=== PATIENT | female | born 1970 | race Caucasian/White ===

== ENCOUNTER 2020-04-24 11:46 | Emergency (ER) | payer BC, OTHER ==
--- OUTSIDE RECORDS SUMMARY | 2020-04-24 11:48 | XMS REPORT | Continuity of Care Document ---
:1970 Author Organization [facility] t Address [address] [place] [address] Care Team Providers Name Role Phone Chris TOM Attending Clinician Deni RG Attending Clinician Azam OTM Attending Clinician Nurse, General Surgery Attending Clinician Unavailable Radiology Attending Clinician Unavailable Pob, Lab Main Attending Clinician Unavailable Chris TOM Admitting Clinician Problems This patient has no known problems. Allergies, Adverse Reactions, Alerts This patient has no known allergies or adverse reactions. Medications This patient has no known medications. Procedures This patient has no known procedures. Encounters Start End Encounter Admission Attending Care Care Encounter Source Date/Time Date/Time Type Type Clinicians Facility Department ID 2019-10-06 2019-10-06 [facility] Chris [facility] [id number] 06:30:00 10:11:00 Encounter Elen Lewis [id number] [place] [id number] Surgical [id number] [place] 071 2019-10-06 2019-10-06 Anesthesia Atif Cheema [facility] [id number] 07:52:00 08:30:00 Hayes Nascimento 35 0.1.13.10 [place] 4.2.7.2.686 Surgical [id number] [place] 020 2019-10-05 2019-10-05 Nurse Nurse, [facility] [id number] 09:11:18 09:27:35 Visit General [place] [id number] Surgery [place] [id number] Professio [id number] [facility] 377 Building 2019-08-18 2019-08-18 Hospital Radiology [facility] [id number] 12:57:00 23:59:00 Encounter [place] [id number] [place] [id number] [place] [id number] 800 2019-08-18 2019-08-18 Condominium Property Manager Wily, Antione [facility] [id number] 13:01:10 13:16:10 Visit Lab Main [place] [id number] [place] [id number] [id number] [address] Results This patient has no known results.
--- NOTE | 2020-04-24 12:55 | RAD REPORT ---
EXAM DESCRIPTION: CT - Head Brain Wo Cont - 04/24/2020 12:49 pm CLINICAL HISTORY: NUMBNESS Headache, drowsiness COMPARISON: No comparisons TECHNIQUE: All CT scans are performed using dose optimization technique as appropriate and may inclu de automated exposure control or mA/KV adjustment according to patient size. FINDINGS: No intracranial hemorrhage, hydrocephalus or extra-axial fluid collection.No areas of brai n edema or evidence of midline shift. The paranasal sinuses and mastoids are clear. The calvarium is intact. IMPRESSION: No acute intracranial abnormality.
--- NOTE | 2020-04-24 13:06 | RAD REPORT ---
EXAM DESCRIPTION: RAD - Chest Single View - 04/24/2020 12:54 pm CLINICAL HISTORY: left arm heaviness Chest pain. COMPARISON: Chest Single View dated 03/13/2017 FINDINGS: Portable technique limits examination quality. The lungs are grossly clear. The heart is normal in size. No displaced fractures. IMPRESSION: No acute intrathoracic process suspected.
[2020-04-24 13:25] LABS: Absolute Lymphocytes (CBC) 1.6 K/uL (0.7-4.9); Basophils % 0.2 % (0-1.3); Hematocrit 37.3 % (36.0-45.0); Lymphocytes % 25.9 % (15.3-44.8); RBC Red Blood Cell Count 4.04 M/uL (3.86-4.86)
[2020-04-24 13:26] LABS: Protime INR 1.73
[2020-04-24 13:48] LABS: ALT/SGPT 24 U/L (12-78); AST/SGOT 11 U/L (15-37); Albumin 3.7 g/dL (3.4-5.0); Alkaline Phosphatase 86 U/L (45-117); BUN Blood Urea Nitrogen 11 mg/dL (7-18); Bicarbonate 27 mmol/L (21-32); Bilirubin Direct < 0.1 mg/dL (0-0.2); Bilirubin Total 0.3 mg/dL (0.2-1.0); Glucose Level 94 mg/dL (74-106); Magnesium 2.2 mg/dL (1.8-2.4); NT PRO-BNP 62 pg/mL (<125); Potassium 3.6 mmol/L (3.5-5.1); Protein, Total 7.5 g/dL (6.4-8.2); Sodium Level 142 mmol/L (136-145); Troponin (Emerg Dept Use Only) < 0.02 ng/mL (0.0-0.045)
--- NOTE | 2020-04-24 14:21 | EDPHYS ---
Physician Documentation [facility] Name: Madeline Quintanilla Age: 49 yrs Sex: Female : 1970 Arrival Date: 04/24/2020 Time: 11:50 Bed 4 Private MD: ED Physician Dominick Abdalla HPI: 04/24 14:11 This 49 yrs old Female presents to ER via Ambulatory with complaints of L Arm kb Numbness \T\ Tingling. 14:12 The patient presents to the emergency department with paresthesias of the left upper kb extremity, that is mild. Onset: The symptoms/episode began/occurred at 11:30. Context: occurred at home, occurred while the patient was working at computer. Associated signs and symptoms: Pertinent positives: paresthesias, Pertinent negatives: altered mental status, chills, dizziness, fever, headache, nausea, neck stiffness, seizure, syncope, near-syncope, blurred vision, double vision, visual field changes, loss of vision, weakness. Severity of symptoms: At their worst the symptoms were mild in the emergency department the symptoms are unchanged. Patient's baseline: Neuro: alert and fully oriented, Motor: no deficits, Ambulation: walks without assistance, Speech: normal. Current symptoms: paralysis or paresis, of the left forearm, that is mild. The patient has not experienced similar symptoms in the past. The patient has not recently seen a physician. Pt reports she was working at her computer and started feeling tingling and numbness to elbow area and down arm. Took a break and shook out her arm, but the feeling never completely went away. States it waxes and wanes. . Historical: - Allergies: 12:08 No Known Allergies; ll1 - Home Meds: 12:51 Xarelto 20 mg oral tab 1 tab once daily [Active]; zb - PMHx: 12:08 Anxiety; bells palsy; Depression; DVT; PE; Vertigo; ll1 - PSHx: 12:08 D \T\ C; ll1 - Immunization history:: Flu vaccine is up to date. - Social history:: Smoking status: Patient denies any tobacco usage or history of. ROS: 14:08 Constitutional: Negative for fever, chills, and weight loss, Eyes: Negative for injury, kb pain, redness, and discharge, Cardiovascular: Negative for chest pain, palpitations, and edema, Respiratory: Negative for shortness of breath, cough, wheezing, and pleuritic chest pain, Abdomen/GI: Negative for abdominal pain, nausea, vomiting, diarrhea, and constipation, Back: Negative for injury and pain, : Negative for injury, bleeding, discharge, and swelling, MS/Extremity: Negative for injury and deformity, Skin: Negative for injury, rash, and discoloration. 14:08 Neuro: Positive for numbness, tingling, of the left forearm. Exam: 14:08 Constitutional: This is a well developed, well nourished patient who is awake, alert, kb and in no acute distress. Head/Face: Normocephalic, atraumatic. Chest/axilla: Normal chest wall appearance and motion. Nontender with no deformity. No lesions are appreciated. Cardiovascular: Regular rate and rhythm with a normal S1 and S2. No gallops, murmurs, or rubs. Normal PMI, no JVD. No pulse deficits. Respiratory: Lungs have equal breath sounds bilaterally, clear to auscultation and percussion. No rales, rhonchi or wheezes noted. No increased work of breathing, no retractions or nasal flaring. Abdomen/GI: Soft, non-tender, with normal bowel sounds. No distension or tympany. No guarding or rebound. No evidence of tenderness throughout. Skin: Warm, dry with normal turgor. Normal color with no rashes, no lesions, and no evidence of cellulitis. MS/ Extremity: Pulses equal, no cyanosis. Neurovascular intact. Full, normal range of motion. Neuro: Awake and alert, GCS 15, oriented to person, place, time, and situation. Cranial nerves II-XII grossly intact. Motor strength 5/5 in all extremities. Sensory grossly intact. Cerebellar exam normal. Normal gait. 14:08 ECG was reviewed by the Attending Physician. Vital Signs: 12:06 BP 147 / 97; Pulse 81; Resp 17; Temp 98.3; Pulse Ox 99% ; Weight 92.99 kg; Height 5 ft. ll1 8 in. (172.72 cm); Pain 0/10; 12:40 BP 125 / 85; Pulse 70; Resp 18; Pulse Ox 99% on R/A; zb 13:47 BP 129 / 90; Pulse 72; Resp 18; Pulse Ox 99% on R/A; zb 12:06 Body Mass Index 31.17 (92.99 kg, 172.72 cm) ll1 NIH Stroke Scale Scores: 14:20 NIHSS Score: 0 kb MDM: 12:37 Patient medically screened. kb 14:11 Data reviewed: vital signs, nurses notes. Data reviewed: I have discussed the patient's kb presentation/case with the attending Emergency Department Physician;. Data interpreted: Pulse oximetry: on room air is 99 %. Interpretation: normal. Counseling: I had a detailed discussion with the patient and/or guardian regarding: the historical points, exam findings, and any diagnostic results supporting the discharge/admit diagnosis, lab results, radiology results, the need for outpatient follow up, a neurologist, to return to the emergency department if symptoms worsen or persist or if there are any questions or concerns that arise at home. ED course: ERP recommends outpatient follow up . 04/24 12:41 Order name: Basic Metabolic Panel; Complete Time: 13:55 kb 04/24 12:41 Order name: CBC with Diff; Complete Time: 13:27 kb 04/24 12:41 Order name: LFT's; Complete Time: 13:55 kb 04/24 12:41 Order name: Magnesium; Complete Time: 13:55 kb 04/24 12:41 Order name: NT PRO-BNP; Complete Time: 13:55 kb 04/24 12:41 Order name: PT-INR; Complete Time: 13:55 kb 04/24 12:41 Order name: Troponin (emerg Dept Use Only); Complete Time: 13:55 kb 04/24 12:41 Order name: XRAY Chest (1 view); Complete Time: 13:08 kb 04/24 12:41 Order name: EKG; Complete Time: 12:42 kb 04/24 12:41 Order name: Cardiac monitoring; Complete Time: 13:34 kb 04/24 12:41 Order name: EKG - Nurse/Tech; Complete Time: 13:34 kb 04/24 12:41 Order name: IV Saline Lock; Complete Time: 13:18 kb 04/24 12:41 Order name: Labs collected and sent; Complete Time: 13:18 kb 04/24 12:41 Order name: CT Head Brain wo Cont; Complete Time: 12:56 kb 04/24 12:41 Order name: O2 Per Protocol; Complete Time: 13:18 kb 04/24 12:41 Order name: O2 Sat Monitoring; Complete Time: 13:18 kb EC:08 Rate is 63 beats/min. Rhythm is regular. QRS [place] is Normal. UT interval is normal at kb 168 msec. QRS interval is normal at 78 msec. QT interval is normal at 398 msec. Administered Medications: No medications were administered Disposition: 04/25 08:33 Co-signature as Attending Physician, Dominick Abdalla MD I agree with the assessment and kdr plan of care. Disposition: 04/24/20 14:20 Discharged to Home. Impression: Paresthesia of skin. - Condition is Stable. - Discharge Instructions: Paresthesia, Dqel-yf-Flab. - Medication Reconciliation Form, Thank You Letter, Antibiotic Education, Prescription Opioid Use form. - Follow up: Emergency Department; When: As needed; Reason: Worsening of condition. Follow up: Private Physician; When: 2 - 3 days; Reason: Recheck today's complaints, Continuance of care, Re-evaluation by your physician. NIH Stroke Scale - NIH Stroke Score Date: 04/24/2020 Time: 14:20 Total Score = 0 1a. Level of Consciousness (LOC) - 0(Alert) 1b. Level of Consciousness (LOC) (Year \T\ Age) - 0(Both) 1c. LOC Commands (Open \T\ Closes Eyes/Site Leader) - 0(Both) 2. Best Gaze (Lateral Gaze Paresis) - 0(Normal) 3. Visual Field Loss - 0(No visual loss) 4. Facial Palsy - 0(Normal) 5a. Left Arm: Motor (10-second hold) - 0(No drift) 5b. Right Arm: Motor (10-second hold) - 0(No drift) 6a. Left Leg: Motor (5-second hold - always test supine) - 0(No drift) 6b. Right Leg: Motor (5-second hold - always test supine) - 0(No drift) 7. Limb Ataxia (finger/nose \T\ heel/joyner - test with eyes open) - 0(Absent) 8. Sensory Loss (pinprick arms/legs/face) - 0(Normal) 9. Best Language: Aphasia (description/naming/reading) - 0(No aphasia) 10. Dysarthria (speech clarity - read or repeat words) - 0(Normal) 11. Extinction and Inattention (visual/tactile/auditory/spatial/personal) - 0(No abnormality) Initials: kb Signatures: Dispatcher [employer] Renita Casarez, DIANE-Miguel Ángel OFFICE ADMINISTRATION-Dominick Kim MD MD kdr Munoz, Edgar RN RN Karin Livingston RN RN ll1 Maria Elena Sims RN RN zb Corrections: (The following items were deleted from the chart) 04/24 14:34 14:20 04/24/2020 14:20 Discharged to Home. Impression: Paresthesia of skin. em Condition is Stable. Forms are Medication Reconciliation Form, Thank You Letter, Antibiotic Education, Prescription Opioid Use. Follow up: Emergency Department; When: As needed; Reason: Worsening of condition. Follow up: Private Physician; When: 2 - 3 days; Reason: Recheck today's complaints, Continuance of care, Re-evaluation by your physician. kb
--- NOTE | 2020-04-24 14:21 | ER ---
Nurse's Notes [facility] Name: Madeline Quintanilla Age: 49 yrs Sex: Female : 1970 Arrival Date: 04/24/2020 Time: 11:50 Bed 4 Private MD: Diagnosis: Paresthesia of skin Presentation: 04/24 12:06 Chief complaint: Patient states: Noticed left arm tingly/numb today while working on a ll1 computer from home 1.5 hours ago. No CP or SOB. + nausea at times. Coronavirus screen: Client denies travel out of the [place] in the last 14 days. At this time, the client does not indicate any symptoms associated with coronavirus-19. Ebola Screen: Patient denies travel to an Ebola-affected area in the 21 days before illness onset. Initial Sepsis Screen: Does the patient meet any 2 criteria? No. Patient's initial sepsis screen is negative. Does the patient have a suspected source of infection? No. Patient's initial sepsis screen is negative. Risk Assessment: Do you want to hurt yourself or someone else? Patient reports no desire to harm self or others. Onset of symptoms was April 24, 2020. 12:06 Method Of Arrival: Ambulatory ll1 12:06 Acuity: KEISHA 3 ll1 Historical: - Allergies: 12:08 No Known Allergies; ll1 - Home Meds: 12:51 Xarelto 20 mg oral tab 1 tab once daily [Active]; zb - PMHx: 12:08 Anxiety; bells palsy; Depression; DVT; PE; Vertigo; ll1 - PSHx: 12:08 D \T\ C; ll1 - Immunization history:: Flu vaccine is up to date. - Social history:: Smoking status: Patient denies any tobacco usage or history of. Screenin:30 Abuse screen: Denies threats or abuse. Denies injuries from another. Nutritional zb screening: No deficits noted. Tuberculosis screening: No symptoms or risk factors identified. Fall Risk No fall in past 12 months (0 pts). No secondary diagnosis (0 pts). IV access (20 points). Ambulatory Aid- None/Bed Rest/Nurse Assist (0 pts). Gait- Normal/Bed Rest/Wheelchair (0 pts) Mental Status- Oriented to own ability (0 pts). Total Claros Fall Scale indicates No Risk (0-24 pts). Assessment: 12:39 General: Appears in no apparent distress. comfortable, Behavior is calm, cooperative, zb appropriate for age. Pain: Complains of pain in dorsal aspect of left forearm, left wrist, left hand, left elbow, palmar aspect of left forearm and left forearm Quality of pain is described as tingling, numb. Neuro: Level of Consciousness is awake, alert, obeys commands, Oriented to person, place, time, situation, Mechanical Estimator are equal bilaterally Moves all extremities. Gait is Speech is normal, Facial symmetry appears normal, Pupils are PERRLA, Numbness in dorsal aspect of left forearm, left wrist, left hand and palmar aspect of left forearm. Cardiovascular: Capillary refill < 3 seconds in bilateral fingers. Respiratory: Airway is patent Respiratory effort is even, unlabored, Respiratory pattern is regular. GI: Reports nausea. : No signs and/or symptoms were reported regarding the genitourinary system. EENT: No signs and/or symptoms were reported regarding the EENT system. Derm: Skin is intact, is healthy with good turgor, Skin is pink, warm \T\ dry. Musculoskeletal: Circulation, motion, and sensation intact. 13:48 Reassessment: Patient appears in no apparent distress at this time. Patient and/or zb family updated on plan of care and expected duration. Pain level reassessed. Patient is alert, oriented x 3, equal unlabored respirations, skin warm/dry/pink. pt states that she is feeling better still having some numbness but not as bad. Vital Signs: 12:06 BP 147 / 97; Pulse 81; Resp 17; Temp 98.3; Pulse Ox 99% ; Weight 92.99 kg; Height 5 ft. ll1 8 in. (172.72 cm); Pain 0/10; 12:40 BP 125 / 85; Pulse 70; Resp 18; Pulse Ox 99% on R/A; zb 13:47 BP 129 / 90; Pulse 72; Resp 18; Pulse Ox 99% on R/A; zb 12:06 Body Mass Index 31.17 (92.99 kg, 172.72 cm) ll1 NIH Stroke Scale Scores: 14:20 NIHSS Score: 0 kb ED Course: 11:50 Patient arrived in ED. ds1 12:07 Triage completed. ll1 12:08 Arm band placed on. ll1 12:13 Maria Elena Sims, RN is Primary Nurse. zb 12:19 Patient has correct armband on for positive identification. Bed in low position. Call mh5 light in reach. Side rails up X 1. Adult w/ patient. Warm blanket given. monitor tech on. Pulse ox on. NIBP on. 12:37 Renita Whitt FNP-C is PHCP. kb 12:37 Dominick Abdalla MD is Attending Physician. kb 12:[address] via wheelchair. zb 12:49 CT Head Brain wo Cont In Process Unspecified. EDMS 12:54 XRAY Chest (1 view) In Process Unspecified. EDMS 13:15 Inserted saline lock: 20 gauge in left antecubital area, using aseptic technique. Blood hb collected. 14:30 No provider procedures requiring assistance completed. IV discontinued, intact, zb bleeding controlled, No redness/swelling at site. Pressure dressing applied. Administered Medications: No medications were administered Outcome: 14:20 Discharge ordered by . kb 14:30 Discharged to home ambulatory. zb 14:30 Condition: good 14:30 Discharge instructions given to patient, Instructed on discharge instructions, follow up and referral plans. medication usage, Demonstrated understanding of instructions, follow-up care. 14:34 Patient left the ED. em NIH Stroke Scale - NIH Stroke Score Date: 04/24/2020 Time: 14:20 Total Score = 0 1a. Level of Consciousness (LOC) - 0(Alert) 1b. Level of Consciousness (LOC) (Year \T\ Age) - 0(Both) 1c. LOC Commands (Open \T\ Closes Eyes/Industrial Hygiene Engineer) - 0(Both) 2. Best Gaze (Lateral Gaze Paresis) - 0(Normal) 3. Visual Field Loss - 0(No visual loss) 4. Facial Palsy - 0(Normal) 5a. Left Arm: Motor (10-second hold) - 0(No drift) 5b. Right Arm: Motor (10-second hold) - 0(No drift) 6a. Left Leg: Motor (5-second hold - always test supine) - 0(No drift) 6b. Right Leg: Motor (5-second hold - always test supine) - 0(No drift) 7. Limb Ataxia (finger/nose \T\ heel/joyner - test with eyes open) - 0(Absent) 8. Sensory Loss (pinprick arms/legs/face) - 0(Normal) 9. Best Language: Aphasia (description/naming/reading) - 0(No aphasia) 10. Dysarthria (speech clarity - read or repeat words) - 0(Normal) 11. Extinction and Inattention (visual/tactile/auditory/spatial/personal) - 0(No abnormality) Initials: kb Signatures: Dispatcher [employer] Renita Casarez, SCHOOL OFFICE ASSISTANT-C SCHOOL OFFICE ASSISTANT-Ckb Ko Weinstein, RN RN Shama Case ds1 Ruthann Nguyễn RN RN Tawana Galan 5 Karin Hahn RN RN ll1 Maria Elena Sims RN RN zb
[2020-04-24 21:04] VITALS: TEMP 98.3; O2SAT 99
[2020-04-24 21:07] VITALS: BP 129/90
--- NOTE | 2020-04-25 07:18 | EKG ---
Test Date: 2020-04-24 Test Time: 13:26:10 Automatic Nailing Machine Feeder: BUSHRA MEASUREMENT RESULTS: Intervals: Rate: 63 ME: 168 QRSD: 78 QT: 398 QTc: 407 [place]: P: 49 ME: 168 QRS: 44 T: 58 INTERPRETIVE STATEMENTS: Normal sinus rhythm Normal ECG Compared to ECG 03/13/2017 10:43:05 No significant changes Electronically Signed On 04-25-20 07:17:32 [employer] by Stiven Platt
== END 2020-04-24 14:34 | disposition home or self-care (01) ==
LOC: ER 11:46
DX: R20.2 Paresthesia of skin (principal); F41.8 Other specified anxiety disorders; Z86.718 Personal history of other venous thrombosis and embolism; Z79.01 Long term (current) use of anticoagulants
CPT/HCPCS: 36415; 70450; 71045; 80048; 80076; 83735; 83880; 84484; 85025; 85610; 93005; 99285

== ENCOUNTER 2021-08-30 12:51 | Emergency (ER) | payer OTHER ==
--- OUTSIDE RECORDS SUMMARY | 2021-08-30 12:53 | XMS REPORT | Continuity of Care Document ---
:1970 Author Organization [facility] t Address [address] [place] [address] Care Team Providers Name Role Phone PCP, DOES NOT HAVE A Primary Care Physician Unavailable Guy Attending Clinician Unavailable NILO Attending Clinician Unavailable Nilo TOM Attending Clinician Deni RG Attending Clinician Azam TOM Attending Clinician Nurse, General Surgery Attending Clinician Unavailable RADIOLOGY Attending Clinician Unavailable Radiology Attending Clinician Unavailable Pob, Lab Main Attending Clinician Unavailable NILO Admitting Clinician Unavailable Nilo TOM Admitting Clinician MONICAL Admitting Clinician Unavailable Payers Payer Name Policy Type Policy Number Effective Date Expiration Date S [facility] - [id number] 2018 00:00:00 OUT OF STATE Problems This patient has no known problems. Allergies, Adverse Reactions, Alerts Allergy Allergy Status Severity Reaction(s) Onset Inactive Treating Comm ents Source Name Type Date Date Clinician NO KNOWN Drug Active [facility] ALLERGIE Class ity of S [facility] Medications This patient has no known medications. Procedures This patient has no known procedures. Encounters Start End Encounter Admission Attending Care Care Encounter Source Date/Time Date/Time Type Type Clinicians Facility Department ID 2021-08-21 [id number] 08:42:03 [facility]ag[facility] 2021-04-04 Outpatient Brady CORCORAN SDJENNIFER JOHNSON [id number] Univers 19:14:42 SIMA ity of [facility] 2020-09-15 2020-09-15 Outpatient [facility] [id number] Univers 14:50:00 14:50:00 ity of [facility] 2020-08-25 2020-08-25 Outpatient [facility] [id number] Univers 16:00:00 16:00:00 ity of [facility] 2019-10-06 2019-10-06 [facility] [id number] 06:30:00 10:11:00 Encounter Sima Debbie [id number] [place] [id number] Surgical [id number] [place] 07 2019-10-06 2019-10-06 Anesthesia Atif Cheema [facility] 1.2.840.11 [id number] 07:52:00 08:30:00 Hayes Nascimento 35 0.1.13.10 [place] 4.2.7.2.686 Surgical [id number] [place] 020 2019-10-05 2019-10-05 Nurse Nurse, [facility] [id number] 09:11:18 09:27:35 Visit General [place] 350.1.13.10 Surgery [place] 4.2.7.2.686 Professio [id number] [address] 2019-10-05 2019-10-05 Outpatient R [facility] [id number] Univers 09:15:00 09:15:00 [id number] ity of [facility] 2019-10-05 2019-10-05 Outpatient R [facility] [id number] Univers 09:15:00 09:15:00 ity of [facility] 2019-08-18 2019-08-18 Outpatient R RADIOLOGY [facility] [id number] Univers 12:57:44 23:59:00 ity of [facility] 2019-08-18 2019-08-18 [facility] Radiology [facility] [id number] 12:57:00 23:59:00 Encounter [place] 350.1.13.10 [place] [id number] [place] [id number] [facility] 2019-08-18 2019-08-18 Shrimp Trawler Antione Julien [facility] [id number] 13:01:10 13:16:10 Visit Lab Main [place] 350.1.13.10 [place] 4.2.7.2.686 [place] [id number] [address] 2019-08-18 2019-08-18 Outpatient R [facility] [id number] Univers 13:15:00 13:15:00 [id number] ity [facility] Results This patient has no known results.
[2021-08-30] MEDS ORDERED: KETOROLAC 30 MG/ML INJ ONE (14:13)
[2021-08-30] MEDS ORDERED: NA CHLORIDE 0.9% 1,000 ML ONE (14:13)
[2021-08-30] MEDS ORDERED: ONDANSETRON 4 MG/2 ML VIAL ONE (14:13)
[2021-08-30 14:28] LABS: Urine Blood Negative (Negative); Urine Glucose Negative (Negative); Urine Protein Negative (Negative); Urine pH 5.5 (5.0-7.0)
[2021-08-30 14:50] LABS: Urine Bacteria >50 /HPF (<20); Urine RBC <5 /HPF (NONE SEEN)
[2021-08-30 14:51] LABS: Urine Amorphous Sediment 1+ /HPF (NONE SEEN)
[2021-08-30 14:52] LABS: Absolute Lymphocytes (CBC) 1.5 K/uL (0.7-4.9); Hematocrit 35.1 % (36.0-45.0); Lymphocytes % 12.9 % (15.3-44.8); MPV 8.4 fL (7.6-11.3); RBC Red Blood Cell Count 3.76 M/uL (3.86-4.86)
[2021-08-30 14:56] LABS: Albumin 3.3 g/dL (3.4-5.0); Bilirubin Total 0.3 mg/dL (0.2-1.0); Potassium 3.5 mmol/L (3.5-5.1); Protein, Total 7.3 g/dL (6.4-8.2)
--- NOTE | 2021-08-30 15:27 | RAD REPORT ---
EXAM DESCRIPTION: CT - Abdomen Pelvis W Contrast - 08/30/2021 3:10 pm CLINICAL HISTORY: lower abdomen pain COMPARISON: No comparisons TECHNIQUE: Biphasic, helical CT imaging of the abdomen and pelvis was performed following 100 ml non -ionic IV contrast. No oral contrast administered. All CT scans are performed using dose optimization technique as appropriate and may include automated exposure control or mA/KV adjustment according to patient size. FINDINGS: No suspicious findings in the lung bases. The liver, spleen, and pancreas show no suspicious findings. Gallbladder and biliary tree are also wi thout suspicious finding. Symmetric renal function is seen with no hydronephrosis or suspicious renal mass. No pyelonephritis o r acute parenchymal process. No bladder abnormalities. No adrenal abnormalities. No stomach or small bowel abnormality. The appendix is normal. From cecum through splenic flexure of the colon is unremarkable. The distal descending colon shows circumferential wall thickening with sig nificant edema and stranding in the surrounding fat. There are few diverticula in this region. More d istally the sigmoid colon and rectum are unremarkable. Uterus and ovaries show no suspicious findings. No free air or pneumatosis. Small amount of free flu id is present in the dependent portion of the pelvis. There is a 18 millimeter involuting right ovari an cyst present. The fluid may be reactive related to ovarian cyst or may be reactive from the colon process. No hernia, mass or bulky lymphadenopathy. No suspicious bony findings. IMPRESSION: Circumferential wall thickening with surrounding edematous/ inflammatory stranding in th e fat adjacent to the distal descending colon. There are few diverticula in this region. Acute diverticulitis is favored over a non diverticular inf ectious colitis. Colon malignancy is not likely but cannot be entirely excluded. No free air, abscess or surgically emergent complication.
[2021-08-30] MEDS ORDERED: CIPROFLOXACIN HCL 500 MG TAB ONE (15:51)
[2021-08-30] MEDS ORDERED: METRONIDAZOLE 500mg IVPB 500 MG/100 ML BAG IV ONE (15:52)
--- NOTE | 2021-08-30 16:34 | ER ---
Nurse's Notes [facility] Name: Madeline Quintanilla Age: 51 yrs Sex: Female : 1970 Arrival Date: 08/30/2021 Time: 12:51 Bed 16 Private MD: Diagnosis: Diverticulitis of large intestine without perforation or abscess without bleeding Presentation: 08/30 13:36 Chief complaint: Patient states: Lower abdominal cramping, worse in LLQ, radiates to ph back, also reports N/D and chills, denies urinary symptoms, states, " My stomach feels really bloated and hard though.". Coronavirus screen: Vaccine status: Patient reports receiving the 2nd dose of the covid vaccine. Ebola Screen: No symptoms or risks identified at this time. Initial Sepsis Screen: Does the patient meet any 2 criteria? No. Patient's initial sepsis screen is negative. Does the patient have a suspected source of infection? No. Patient's initial sepsis screen is negative. Risk Assessment: Do you want to hurt yourself or someone else? Patient reports no desire to harm self or others. Onset of symptoms was August 30, 2021. 13:36 Method Of Arrival: Ambulatory ph 13:36 Acuity: KEISHA 3 ph Triage Assessment: 13:38 General: Appears in no apparent distress. comfortable, Behavior is calm, cooperative, ph appropriate for age, Reports chills for 0-12 hours, Denies fever. Pain: Complains of pain in right lower quadrant and left lower quadrant. Neuro: Level of Consciousness is awake, alert, obeys commands, Oriented to person, place, time, situation. GI: Reports lower abdominal pain, bloating, diarrhea, nausea. Derm: Skin is intact, Skin is pink, warm \\T\\ dry. 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 - Social history:: Smoking status: Patient denies any tobacco usage or history of. Screenin:45 Abuse screen: Denies threats or abuse. Denies injuries from another. Nutritional bp screening: No deficits noted. Tuberculosis screening: No symptoms or risk factors identified. Fall Risk None identified. Assessment: 13:45 General: SEE TRIAGE NOTE. bp 15:45 Reassessment: No changes from previously documented assessment. Patient and/or family bp updated on plan of care and expected duration. Pain level reassessed. PROVIDER AT B/S. 17:04 Reassessment: PT D/C HOME AMBULATORY, DX WITH DIVERTICULITIS. bp Vital Signs: 13:36 BP 135 / 85; Pulse 86; Resp 16; Temp 97.8(TE); Pulse Ox 100% on R/A; Weight 83.91 kg; ph Height 5 ft. 8 in. (172.72 cm); 15:20 BP 120 / 77; Pulse 67; Resp 16; Pulse Ox 100% ; bp 17:04 BP 120 / 85; Pulse 65; Resp 16; Pulse Ox 100% ; bp 13:36 Body Mass Index 28.13 (83.91 kg, 172.72 cm) ph ED Course: 12:51 Patient arrived in ED. am2 13:19 Tre Fried PA is PHCP. cp 13:19 Sanket See MD is Attending Physician. cp 13:21 Atif Jasmine, KEENA is Primary Nurse. bp 13:37 Triage completed. ph 13:39 Arm band placed on Patient placed in an exam room. ph 13:45 Patient has correct armband on for positive identification. Bed in low position. Call bp light in reach. Side rails up X2. 14:20 Inserted saline lock: 20 gauge in left antecubital area, using aseptic technique. bp 15:12 CT Abd/Pelvis - IV Contrast Only In Process Unspecified. EDMS 16:32 Vitaliy Mckeon MD is Referral Physician. cp 17:04 No provider procedures requiring assistance completed. IV discontinued, intact, bp bleeding controlled, No redness/swelling at site. Pressure dressing applied. Administered Medications: 14:20 Drug: NS 0.9% 1000 ml Route: IV; Rate: 1 bolus; Site: left antecubital; bp 17:06 Follow up: IV Status: Completed infusion; IV Intake: 1000ml bp 14:20 Drug: Ketorolac 15 mg Route: IVP; Site: left antecubital; bp 15:36 Follow up: Response: No adverse reaction bp 14:20 Drug: Zofran (Ondansetron) 4 mg Route: IVP; Site: left antecubital; bp 15:36 Follow up: Response: No adverse reaction bp 15:45 Drug: metroNIDAZOLE 500 mg Volume: 100 ml; Route: IVPB; Infused Over: 30 mins; Site: bp left antecubital; 17:06 Follow up: IV Status: Completed infusion; IV Intake: 100ml bp 15:45 Drug: Cipro (ciprofloxacin) 500 mg Route: PO; bp 17:06 Follow up: Response: No adverse reaction bp Intake: 17:06 IV: 100ml; Total: 100ml. bp 17:06 IV: 1000ml; Total: 1100ml. bp Outcome: 16:33 Discharge ordered by MD. cp 17:04 Discharged to home ambulatory. bp 17:04 Condition: stable 17:04 Discharge instructions given to patient, Instructed on discharge instructions, follow up and referral plans. medication usage, Demonstrated understanding of instructions, follow-up care, medications, Prescriptions given X 4. 17:06 Patient left the ED. bp Signatures: Dispatcher [employer] EDMS Sully Sabillon RN RN ph Tre Fried, FABIENNE PA Oralia Freed 2 Atif Jasmine, RN RN bp Corrections: (The following items were deleted from the chart) 15:57 15:20 Pulse 67bpm; Resp 16bpm; Pulse Ox 100%; bp bp
--- NOTE | 2021-08-30 16:34 | EDPHYS ---
Physician Documentation [facility] Name: Madeline Quintanilla Age: 51 yrs Sex: Female : 1970 Arrival Date: 08/30/2021 Time: 12:51 Bed 16 Private MD: ED Physician Sanket See HPI: 08/30 13:55 This 51 yrs old Female presents to ER via Ambulatory with complaints of Abdominal Pain. cp 13:55 The patient presents with abdominal pain in the lower abdomen. Onset: The cp symptoms/episode began/occurred 1 week(s) ago, and became worse 2 day(s) ago. The symptoms radiate to low back. Associated signs and symptoms: Pertinent negatives: anorexia, chest pain, constipation, diarrhea, dysuria, fever, shortness of breath, vaginal discharge, vomiting. The symptoms are described as crampy. Severity of pain: in the emergency department the pain is unchanged despite home interventions. 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 - Social history:: Smoking status: Patient denies any tobacco usage or history of. ROS: 14:00 Constitutional: Negative for body aches, chills, fever, poor PO intake. cp 14:00 Eyes: Negative for injury, pain, redness, and discharge. cp 14:00 ENT: Negative for drainage from ear(s), ear pain, sore throat, difficulty swallowing, difficulty handling secretions. 14:00 Cardiovascular: Negative for chest pain, edema, palpitations. 14:00 Respiratory: Negative for cough, shortness of breath, wheezing. 14:00 Abdomen/GI: Positive for abdominal pain, abdominal cramps, abdominal distension, Negative for vomiting, diarrhea, constipation, anorexia, black/tarry stool, rectal bleeding. 14:00 Back: Positive for radiated pain. 14:00 Neuro: Negative for altered mental status, headache, weakness. 14:00 All other systems are negative. Exam: 14:05 Constitutional: The patient appears in no acute distress, alert, awake, non-toxic, well cp developed, well nourished. 14:05 Head/Face: Normocephalic, atraumatic. cp 14:05 Eyes: Periorbital structures: appear normal, Conjunctiva: normal, no exudate, no injection, Sclera: no appreciated abnormality, Lids and lashes: appear normal, bilaterally. 14:05 ENT: External ear(s): are unremarkable, Nose: is normal, Posterior pharynx: Airway: no evidence of obstruction, patent. 14:05 Chest/axilla: Inspection: normal. 14:05 Cardiovascular: Rate: normal, Rhythm: regular. 14:05 Respiratory: the patient does not display signs of respiratory distress, Respirations: normal, no use of accessory muscles, no retractions, labored breathing, is not present, Breath sounds: are clear throughout, no decreased breath sounds, no stridor, no wheezing. 14:05 Abdomen/GI: Inspection: abdomen appears normal, Bowel sounds: active, all quadrants, Palpation: soft, in all quadrants, moderate abdominal tenderness, in the left lower quadrant, rebound tenderness, is not appreciated, voluntary guarding, is elicited in the left lower quadrant. 14:05 Back: pain, that is mild, of the low back area, ROM is normal. Vital Signs: 13:36 BP 135 / 85; Pulse 86; Resp 16; Temp 97.8(TE); Pulse Ox 100% on R/A; Weight 83.91 kg; ph Height 5 ft. 8 in. (172.72 cm); 15:20 BP 120 / 77; Pulse 67; Resp 16; Pulse Ox 100% ; bp 17:04 BP 120 / 85; Pulse 65; Resp 16; Pulse Ox 100% ; bp 13:36 Body Mass Index 28.13 (83.91 kg, 172.72 cm) ph MDM: 13:40 Patient medically screened. cp 14:00 Differential diagnosis: appendicitis, bowel obstruction, diverticulitis, non-specific cp abd pain, Peritonitis, Pyelonephritis, Ureterolithiasis, urinary tract infection. 16:32 Data reviewed: vital signs, nurses notes, lab test result(s), radiologic studies, CT cp scan. 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 Response to treatment: the patient's symptoms have markedly improved after treatment. ED course: VSS. Pain markedly improved. Patient appears non-toxic and tolerating po meds. Will discharge to home for continued monitoring. 08/30 13:41 Order name: CBC with Diff; Complete Time: 15:31 cp 08/30 15:32 Interpretation: Normal except: WBC 11.90; RBC 3.76; HCT 35.1; MICHELL% 79.1; LYM% 12.9; cp NEUT A 9.4. 08/30 13:41 Order name: CMP; Complete Time: 15:31 cp 08/30 15:32 Interpretation: Normal except: GFR 82. cp 08/30 13:41 Order name: Lipase; Complete Time: 15:31 cp 08/30 13:41 Order name: Urine Microscopic Only; Complete Time: 15:31 cp 08/30 15:32 Interpretation: Normal except: UBACT >50; SQEPI 5-10. cp 08/30 14:28 Order name: Urine Dipstick-Ancillary; Complete Time: 15:31 EDMS 08/30 14:53 Order name: Urine Culture EDMS 08/30 13:41 Order name: IV Saline Lock; Complete Time: 14:30 cp 08/30 14:00 Order name: CT Abd/Pelvis - IV Contrast Only; Complete Time: 15:31 cp 08/30 15:05 Order name: Urine --Ancillary (enter results); Complete Time: 15:31 eb 08/30 13:41 Order name: Labs collected and sent; Complete Time: 14:30 cp 08/30 13:41 Order name: Urine Dipstick-Ancillary (obtain specimen); Complete Time: 14:30 cp 08/30 13:41 Order name: Urine Test (obtain specimen); Complete Time: 14:30 cp Administered Medications: 14:20 Drug: NS 0.9% 1000 ml Route: IV; Rate: 1 bolus; Site: left antecubital; bp 17:06 Follow up: IV Status: Completed infusion; IV Intake: 1000ml bp 14:20 Drug: Ketorolac 15 mg Route: IVP; Site: left antecubital; bp 15:36 Follow up: Response: No adverse reaction bp 14:20 Drug: Zofran (Ondansetron) 4 mg Route: IVP; Site: left antecubital; bp 15:36 Follow up: Response: No adverse reaction bp 15:45 Drug: metroNIDAZOLE 500 mg Volume: 100 ml; Route: IVPB; Infused Over: 30 mins; Site: bp left antecubital; 17:06 Follow up: IV Status: Completed infusion; IV Intake: 100ml bp 15:45 Drug: Cipro (ciprofloxacin) 500 mg Route: PO; bp 17:06 Follow up: Response: No adverse reaction bp Disposition: 18:51 Co-signature as Attending Physician, Sanket See MD. rn Disposition Summary: 08/30/21 16:33 Discharge Ordered Location: Home cp Problem: new cp Symptoms: have improved cp Condition: Stable cp Diagnosis - Diverticulitis of large intestine without perforation or abscess without bleeding cp Followup: cp - With: Vitaliy Mckeon MD - When: 2 - 3 days - Reason: Recheck today's complaints Discharge Instructions: - Discharge Summary Sheet cp - High-Fiber Diet cp - Diverticulitis cp Forms: - Medication Reconciliation Form cp - Thank You Letter cp - Antibiotic Education cp - Prescription Opioid Use cp Prescriptions: - Zofran 4 mg Oral Tablet - take 1 tablet by ORAL route every 12 hours As needed; 20 tablet; Refills: 0, cp Product Selection Permitted - Cipro 500 mg Oral Tablet - take 1 tablet by ORAL route every 12 hours for 10 days; 20 tablet; Refills: 0, cp Product Selection Permitted - Metronidazole 500 mg Oral Tablet - take 1 tablet by ORAL route every 8 hours; 30 tablet; Refills: 0, Product cp Selection Permitted - dicyclomine 20 mg Oral Tablet - take 1 tablet by ORAL route 4 times per day; 30 tablet; Refills: 0, Product cp Selection Permitted Signatures: Dispatcher [employer] Sanket Brewer MD MD rn Hall, Patricia, RN RN Tre Tavera PA PA Atif Cleary RN RN bp
[2021-08-30 17:21] VITALS: TEMP 97.8; O2SAT 100
[2021-08-30 17:24] VITALS: BP 120/85
== END 2021-08-30 17:06 | disposition home or self-care (01) ==
LOC: ER 12:51
DX: K57.32 Diverticulitis of large intestine without perforation or abscess without bleeding (principal); F41.8 Other specified anxiety disorders
CPT/HCPCS: 96365; 96361; 87088; 85025; 87086; 36415; 81025; 83690; 80053; 74177; 96375; 99284; J7030; J2405; 81003; 81015

== ENCOUNTER 2025-03-08 11:28 | Emergency (ER) | payer OTHER ==
--- OUTSIDE RECORDS SUMMARY | 2025-03-08 11:32 | XMS REPORT | Continuity of Care Document ---
Author Name Unknown Address [address] [facility] [address] [place] [address] [facility] [place] Address [address] [facility] [place] [address] Care Team Providers Care Test Engineering Manager Name Role Phone Gricel Burnette (Jimbo) Primary Care Physician + [phone] Meaghan Tovar Attending Clinician Unavailable SIMA CORCORAN Attending Clinician Unavailabel Reina RN, [place] Attending Clinician Unavaila ble [email or web address]_Chris_S Attending Clinician Unavaila DEONNA Naidu Attending Clinician Unavailable Deonna Bro DO Attending Clinician [phone] JOANN BRIDGES Attending Clinician Unavailable [facility] Attending Clinician Un available Unknown, Attending Attending Clinician Unavailab MELISSA Nicholas Attending Clinician Unavailable EbMelissa Resendez Attending Clinician [phone] Doctor Unassigned, [place] Attending Clinician U Sima Mayberry MD Attending Clinician [phone] Atif Cheema CRNA Attending Clinician [phone] Hayes Nascimento MD Attending Clinicia n Nurse, Antione General Surgery Attending Clinician U re RADIOLOGY Attending Clinician Unavailable Radiology Attending Clinician Unavailable Pob, [facility] Main Attending Clinician Unavailabl e KADIYALA, SIMA Admitting Clinician Unavailabl e [email or web address]_Chris_S Admitting Clinician UnavailDEONNA Willis Admitting Clinician Unavailable Chris TOM, Sima Admitting Clinician LAMONTE BUCIO Admitting Clinician Unavailabl e Payers Payer Name Policy Type Policy Number Effective Date Expirati on Date Source [facility] - OUT OF STATE [id number] 2018 00:00:00 [employer] [id number] 2022 00:00:00 [employer] GENERIC [id number] 2022 00:00:00 Problems Condition Name Condition Details Condition Category Status Onset Date Resolution Date Last Treatment Date Treating Clinician Comments Source Anxiety disorder Anxiety Disorder Problem Active 08-12 00:00: 00 [facility] Depressive disorder Depressive Disorder Problem Active 08-12 00:00: 00 [facility] Insomnia Insomnia Problem Active 08-12 00:00: 00 [facility] Irregular intermenst rual bleeding Irregular Intermenst rual Bleeding Problem Active - 00:00: 00 [facility] Menopausal syndrome Menopausal Syndrome Problem Active 08-12 00:00: 00 [facility] Joint pain Joint Pain Problem Active 08-12 00:00: 00 [facility] Fatigue Fatigue Problem Active - 00:00: 00 [facility] Cyst of right ovary Cyst of Right Ovary Problem Active 08-12 00:00: 00 [facility] Vitamin D deficiency Vitamin D Deficiency Problem Active 08-12 00:00: 00 [facility] Obesity (BMI 30-39.9) Obesity (BMI 30-39.9) Disease Active 4-30 00:00: 00 [facility] acute hospital Polymenorr hea Polymenorr hea Problem Active 3-04 00:00: 00 [facility] History of thromboemb olism History of Thromboemb olism Problem Active 3-04 00:00: 00 [facility] Excessive menstruati on with irregular cycle Excessive Menstruati on with Irregular Cycle Problem Active 3- 00:00: 00 [facility] Anemia due to chronic blood loss Anemia Due to Chronic Blood Loss Problem Active 08-09 00:00: 00 [facility] Duncan's palsy Duncan's palsy Disease Active 1 00:00: 00 [facility] acute hospital Allergies, Adverse Reactions, Alerts Allergy Name Allergy Type Status Severity Reaction(s) Onset Date Inactive Date Treating Clinician Comments Source NO KNOWN ALLERGIE S Drug Class Active General acute hospital Social History Social Habit Start Date Stop Date Quantity Comments Source ASSERTION Possible [facility]coh[facility] beverage intake 2022-10-10 00:00:00 2022-10-10 00:00:00 Ex-drinker (finding) [facility] Exposure to SARS-CoV-2 (event) 2022-09-28 00:00:00 2022-10-08 09:23:[address] [facility] Tobacco use and exposure 2022-10-08 00:00:00 2022-10-08 00:00:00 Smokeless tobacco non-user [facility] Alcohol intake 2022-10-08 00:00:00 2022-10-08 00:00:00 Ex-drinker (finding) [facility] History of Social function 2019-10-06 00:00:00 2019-10-06 00:00:[address] [facility] Sex assigned at 1970 00:00:00 1970 00:00:[address] [facility] Smoking Status Start Date Stop Date Source Never Smoker [facility] Medications Ordered Medication Name Filled Medication Name Start Date Stop Date Current Medication? Ordering Clinician Indication Dosage Frequency Signature (SIG) Comments Components Source iopamidol (ISOVUE 370-500 mL) injection 80 mL 10-08 16:26: 00 10-08 16:45 :00 No [id number] 80mL 80 mL, Intravenou s, ONCE, 1 dose, On Thu10/08/22 at 1145, Routine General acute hospital omeprazole 20 mg capsule 10-08 00:00: 00 11-08 04:59 :00 No [id number] 20mg Take 1 capsule by mouth in the morning for 30 days. General acute hospital Nitrofurant oin&Nit. Macrocryst (MACROBID) 100 mg capsule 3-04 00:00: 00 08-17 05:59 :00 No [id number] 100mg Take 1 capsule by mouth in the morning and 1 capsule in the evening. Do all this for 7 days. General acute hospital rivaroxaban (XARELTO) 20 mg tablet 30 11:08: 11 Yes 20mg Take 20 mg by mouth daily. General acute hospital ParaGard T 380A 380 square mm intrauterin e device Take by intrauterin e route. ParaGard T 380A 380 square mm intrauterin e device Take by intrauterin e route. No ParaGard T 380A 380 square mm intrauteri ne device Take by intrauteri ne route. [facility] Immunizations Ordered Immunization Name Filled Immunization Name Date Status Comments Source SARS-COV-2 COVID-19 PFIZER VACCINE 2020-09-15 00:00:[address] [facility] SARS-COV-2 COVID-19 PFIZER VACCINE 2020-09-15 00:00:[address] [facility] SARS-COV-2 COVID-19 PFIZER VACCINE 2020-09-15 00:00:[address] [facility] SARS-COV-2 COVID-19 PFIZER VACCINE 2020-09-15 00:00:[address] [facility] SARS-COV-2 COVID-19 PFIZER VACCINE 2020-09-15 00:00:[address] [facility] SARS-COV-2 COVID-19 PFIZER VACCINE 2020-08-25 00:00:[address] [facility] SARS-COV-2 COVID-19 PFIZER VACCINE 2020-08-25 00:00:[address] [facility] SARS-COV-2 COVID-19 PFIZER VACCINE 2020-08-25 00:00:[address] [facility] SARS-COV-2 COVID-19 PFIZER VACCINE 2020-08-25 00:00:[address] [facility] SARS-COV-2 COVID-19 PFIZER VACCINE 2020-08-25 00:00:[address] [facility] Vital Signs Vital Name Observation Time Observation Value Comments S ource Body Weight 2023-09-03 00:00:00 225.8 [lb_av] [facility] BMI (Body Mass Index) 2023-09-03 00:00:00 34.3 kg/m2 [facility] Height 2023-09-03 00:00:00 68 [in_i] [facility] BP Diastolic 2023-09-03 00:00:00 85 mm[Hg] [facility] BP Systolic 2023-09-03 00:00:00 127 mm[Hg] [facility] BP Systolic 2023-08-13 00:00:00 131 mm[Hg] [facility] BMI (Body Mass Index) 2023-08-13 00:00:00 34.3 kg/m2 [facility] Height 2023-08-13 00:00:00 68 [in_i] [facility] Body Weight 2023-08-13 00:00:00 225.8 [lb_av] [facility] BP Diastolic 2023-08-13 00:00:00 80 mm[Hg] [facility] Systolic blood pressure 2022-10-08 18:00:00 129 mm[Hg] [facility] Diastolic blood pressure 2022-10-08 18:00:00 87 mm[Hg] [facility] Heart rate 2022-10-08 18:00:00 65 /min [facility] Respiratory rate 2022-10-08 18:00:00 23 /min [facility] Oxygen saturation in Arterial blood by Pulse oximetry 2022-10-08 18:00:00 99 /min [facility] Body temperature 2022-10-08 15:01:[address] [facility] Body weight 2022-10-08 15:01:00 93.123 kg [facility] BMI 2022-10-08 15:01:00 31.22 kg/m2 [facility] Diastolic blood pressure 2022-10-08 14:38:00 89 mm[Hg] [facility] Systolic blood pressure 2022-10-08 14:38:00 139 mm[Hg] [facility] Heart rate 2022-10-08 14:37:00 86 /min [facility] Body temperature 2022-10-08 14:37:[address] [facility] Respiratory rate 2022-10-08 14:37:00 24 /min [facility] Body height 2022-10-08 14:37:00 172.7 cm [facility] Body weight 2022-10-08 14:37:00 93.072 kg [facility] BMI 2022-10-08 14:37:00 31.20 kg/m2 [facility] Oxygen saturation in Arterial blood by Pulse oximetry 2022-10-08 14:37:00 98 /min [facility] Systolic blood pressure 2022-08-09 20:40:00 144 mm[Hg] [facility] Diastolic blood pressure 2022-08-09 20:40:00 93 mm[Hg] [facility] Heart rate 2022-08-09 20:34:00 68 /min [facility] Body temperature 2022-08-09 20:34:[address] [facility] Body height 2022-08-09 20:34:00 172.7 cm [facility] Body weight 2022-08-09 20:34:00 93.895 kg [facility] BMI 2022-08-09 20:34:00 31.47 kg/m2 [facility] Oxygen saturation in Arterial blood by Pulse oximetry 2022-08-09 20:34:00 100 /min [facility] Procedures Procedure Date / Time Performed Performing Clinician Source Transvaginal Us Non-ob 2023-08-27 00:00:00 [facility] US, transvaginal 2023-08-27 00:00:[address] [facility] [address] CHEST PULMONARY ANGIOGRAM 2022-10-08 16:30:[address] [facility] LIPASE 2022-10-08 15:30:00 Deonna Bro [facility] MAGNESIUM 2022-10-08 15:30:00 Deonna Bro [facility] TROPONIN I 2022-10-08 15:30:00 Deonna Bro [facility] COMP. METABOLIC PANEL ([id number]) 2022-10-08 15:30:[address] [facility] CBC WITH DIFF 2022-10-08 15:30:00 Deonna Bro [facility] N-TERMINAL PRO-BNP 2022-10-08 15:30:[address] [facility] NOTICE OF PRIVACY PRACTICES 2022-10-08 14:56:17 Doctor Unassigned, [place] [facility] CONSENT/REFUSAL FOR DIAGNOSIS AND TREATMENT 2022-10-08 14:53:59 Doctor Unassigned, [place] [facility] POCT URINALYSIS 2022-08-09 20:40:00 Joann Bridges [facility] ASSIGNMENT OF BENEFITS 2022-08-09 20:25:01 Docto r Unassigned, [place] [facility] Encounters Start Date/Time End Date/Time Encounter Type Admission Type Attending [facility] Facility Care Department Encounter ID Source 2022-09-22 15:36:00 Outpatient TovarProsperi [facility] [id number] [facility] 2021-09-17 08:16:02 Outpatient Tovar Meaghan [facility] [id number] [facility] 2021-08-21 08:42:03 Outpatient TovarProsperi [facility] [id number] [facility] 2021-04-04 19:14:42 Outpatient SIMA SIMENTAL [facility] [id number] General acute hospital 2025-03-08 00:00:00 2025-03-08 11:08:01 Nurse Triage [facility] Chessica T [facility] [id number] 350.1.13.10 [id number] [id number] General acute hospital 2023-09-03 00:00:00 2023-09-03 00:00:00 Adilene Carranza, GLOBAL COMPENSATION ANALYST: [address], [address], [place] [address] , Ph. [facility] - GC_GCBZW_La sandhya Whitt* [id number] [facility] 2023-08-13 00:00:00 2023-08-13 00:00:00 Adilene Carranza, GLOBAL COMPENSATION ANALYST: [address], [address], [place] [address] , Ph. [facility] - GC_GCBZW_La sandhya Whitt* [id number] [facility] 2022-10-08 10:02:00 2022-10-08 13:29:00 Emergency X DEONNA BRO [facility] ERT [id number] General acute hospital 2022-10-08 10:02:00 2022-10-08 13:29:00 Emergency Deonna Bro [facility] 1..840.114 350.1.13.10 4.2.7.2.686 [id number] General acute hospital 2022-10-08 09:35:00 2022-10-08 10:01:12 Outpatient R JOANN BRIDGES [facility] [id number] General acute hospital 2022-10-08 09:35:00 2022-10-08 09:55:00 [facility] Unknown, Attending [facility] 1..840.114 350.1.13.10 4.2.7.2.686 [id number] General acute hospital 2022-08-09 14:20:00 2022-08-09 15:00:27 Outpatient R MELISSA BYRD [facility] [id number] General acute hospital 2022-08-09 14:20:00 2022-08-09 14:40:00 Urgent Care Melissa Byrd Unknown, Attending [facility] 1..840.114 350.1.13.10 4.2.7.2.686 [id number] General acute hospital 2022-08-09 00:00:00 2022-08-09 00:00:00 Orders Only Doctor Unassigned, [place] [facility] [id number] 350.1.13.10 4.2.7.2.686 [id number] General acute hospital 2020-09-15 14:50:00 2020-09-15 14:50:00 Outpatient [facility] [id number] General acute hospital 2020-08-25 16:00:00 2020-08-25 16:00:00 Outpatient [facility] [id number] General acute hospital 2019-10-06 06:30:00 2019-10-06 10:11:00 Hospital Encounter Sima Corcoran [facility] 1.2840.114 350.1.13.10 4.2.7.2.686 [id number] 2019-10-06 07:52:00 2019-10-06 08:30:00 Anesthesia Atif Cheema Fernando [facility] [place] 1.2840.114 350.1.13.10 4.2.7.2.686 [id number] 2019-10-05 09:11:18 2019-10-05 09:27:35 Nurse Visit Nurse, [facility] General Surgery [facility] 1.2840.114 350.1.13.10 4.2.7.2.686 [id number] 2019-10-05 09:15:00 2019-10-05 09:15:00 Outpatient R [facility] [id number] General acute hospital 2019-08-18 12:57:44 2019-08-18 23:59:00 Outpatient R RADIOLOGY [facility] [id number] General acute hospital 2019-08-18 12:57:00 2019-08-18 23:59:00 Hospital Encounter Radiology [facility] [id number] 350.1.13.10 4.2.7.2.686 [id number] 2019-08-18 13:01:10 2019-08-18 13:16:10 Insurance Marketing Specialist Visit Wily, [facility] Main [facility] Stanley Lonnie [facility] 1..840.114 350.1.13.10 4.2.7.2.686 [id number] [facility] [id number] Results Test Description Test Time Test Comments Results Result Co mments Source [facility] + [id number] 00:00:00* Test Item Value Reference Range Interpretation Comme nts LMP date: (test code = LMP date:) 06/08/2019 Pap, liquid-based (test code = Pap, liquid-based) nilm nilm source (liquid-based cytology): (test code = source (liquid-based cytology):) cervical (which includes endocervical) HPV high risk DNA (non 16/18) (test code = HPV high risk DNA (non 16/18)) not detected not detected HPV high risk DNA type 16 (test code = HPV high risk DNA type 16) not detected not detected HPV high risk DNA type 18 (test code = HPV high risk DNA type 18) not detected not detected [facility] SPECIFIC [id number] 20:41:00* Test Item Value Reference Range Interpretation Comme nts POCT U SP GRAV (test code = 3255) 1.010 mg/dl 1.005-1.025 POCT PH U (test code = 3254) 5 mg/dl 5-8 POCT U LEUK EST (test code = 3263) trace Negative - Negative POCT U NIT (test code = 3262) negative Negative - Negati ve POCT U PROT (test code = 3259) trace Negative - Negative POCT U GLU (test code = 3256) normal Negative - Negati ve POCT U KETONE (test code = 3258) negative Negative - Negative POCT U UROBILI (test code = 3260) normal 0.2-1 POCT U BILI (test code = 3261) negative Negative - Negative POCT U BLD (test code = 3257) about 250 Negative - Negati ve POCT U COLOR (test code = 3266) yellow POCT U APPEAR (test code = 3267) clear Lab Interpretation (test cod e = [id number]) Abnormal [facility] Notes Date/Time Note Provider Source 2025-03-08 11:01:00 Regarding: left arm tingling ,vibration under breast ----- Message from Patient Bosom Presser sent at 03/08/2025 10:55 AM CDT ----- last 5 days left vibration under left breast last night whole left side of jaw and neck pain/pressure/tightness left arm tingling would like to talk to nurse THAN Reina RN [facility] 2025-03-08 11:01:00 Adult Triage Assessment Last Clinic Visit: "6 months ago" Primary Symptom: "vibration under left breast" Onset / Duration: 2 hours Location / Description: "left side comes and goes" "pretty constant" Pain / Severity: 0 out of 10 Associated Symptoms: "stiff neck going into jaw" tingling boarder line numbness on left side Fever / Method: n/a Hydration: no changes Treatment so far: Effect on ADL's: none LMP: n/a Pre-existing condition / Immunocompromised: Reason for Disposition [1] Loss of speech or garbled speech AND [2] sudden onset AND [3] present now Protocols used: Neurologic Ixouikr-LIPNE-JI Nurse Note: pt advised to call EMS. Access Center [facility] Reina RN Ankur [facility]
[2025-03-08 12:49] LABS: Absolute Lymphocytes (CBC) 1.6 K/uL (0.7-4.9); Hematocrit 39.0 % (36.0-45.0); Hemoglobin 12.8 g/dL (12.0-15.0); MCH 30.8 pg (27.0-35.0); MCHC 32.7 g/dL (32.0-36.0); MCV 94.0 fL (80-100); MPV 8.5 fL (7.6-11.3); Nucleated RBC Absolute Count 0.0 (0-0); Nucleated Red Blood Cells % 0.0 % (0-0); RBC Red Blood Cell Count 4.15 M/uL (3.86-4.86); White Blood Count 3.90 thou/uL (4.3-10.9)
[2025-03-08 13:08] LABS: Anion Gap 8.9 mEq/L (5.0-15.0); BUN Blood Urea Nitrogen 8.0 mg/dL (7-18); Glucose Level 79.0 mg/dL (74-106); NT PRO-BNP 78.0 pg/mL (<125); Potassium 3.9 mEq/L (3.5-5.1); Troponin High Sensitivity 3.5 pg/mL (<58.9)
--- NOTE | 2025-03-08 13:19 | RAD REPORT ---
EXAM: Chest Single View HISTORY: 54 years Female CHEST PAIN COMPARISON: No prior exams FINDINGS: LUNGS/PLEURA: The lungs are clear. No pleural effusions or pneumothorax. No pulmonary edema. CARDIAC/MEDIASTINUM: The cardiac silhouette is within normal limits. UPPER ABDOMEN: No significant abnormality. BONES: No acute abnormality. LINES/TUBES/OTHER: N/A IMPRESSION: No evidence of acute cardiopulmonary disease.
[2025-03-08] MEDS ORDERED: KETOROLAC 30 MG/ML INJ ONE (14:33)
[2025-03-08] MEDS ORDERED: ONDANSETRON 4 MG/2 ML VIAL ONE (14:33)
[2025-03-08] MEDS ORDERED: MORPHINE 2 MG/ML SYR ONE (14:33)
[2025-03-08] MEDS ORDERED: NA CHLORIDE 0.9% 500 ML ONE (14:34)
--- NOTE | 2025-03-08 14:54 | EDPHYS ---
Physician Documentation [facility] Name: Madeline Wagner Age: 54 yrs Sex: Female : 1970 Arrival Date: 03/08/2025 Time: 11:28 Bed 17 Private MD: ED Physician Eliu High HPI: 03/08 16:00 This 54 yrs old Female presents to ER via Ambulatory with complaints of Jaw dr5 Pain, Neck Pain, Numbness Of Arm. 16:00 Onset: The symptoms/episode began/occurred acutely. Patient is a 54-year-old female dr5 with history anxiety, Duncan's palsy, depression, DVT, vertigo coming in with vibrations below left breast that has been going on for the past couple days. Patient reports that it got worse this morning. Patient denies chest palpitations or pressure or chest pain. Patient reports a vibration sensation.. 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 - Infectious Disease History:: Denies. - Social history:: Smoking status: Patient denies any tobacco usage or history of. ROS: 16:00 Constitutional: as per hpi dr5 Exam: 16:00 Constitutional: This is a well developed, well nourished patient who is awake, alert, dr5 and in no acute distress. Head/Face: Normocephalic, atraumatic. Eyes: Pupils equal round and reactive to light, extra-ocular motions intact. Lids and lashes normal. Conjunctiva and sclera are non-icteric and not injected. Cornea within normal limits. Periorbital areas with no swelling, redness, or edema. ENT: Nares patent. No nasal discharge, no septal abnormalities noted. Tympanic membranes are normal and external auditory canals are clear. Oropharynx with no redness, swelling, or masses, exudates, or evidence of obstruction, uvula midline. Mucous membranes moist. Neck: Trachea midline, no thyromegaly or masses palpated, and no cervical lymphadenopathy. Supple, full range of motion without nuchal rigidity, or vertebral point tenderness. No Meningismus. Chest/axilla: Normal chest wall appearance and motion. Nontender with no deformity. No lesions are appreciated. Cardiovascular: Regular rate and rhythm with a normal S1 and S2. Normal PMI, no JVD. No pulse deficits. Respiratory: Lungs have equal breath sounds bilaterally, clear to auscultation. No rales, rhonchi or wheezes noted. No increased work of breathing, no retractions or nasal flaring. Back: No spinal tenderness. No costovertebral tenderness. Full range of motion. Skin: Warm, dry with normal turgor. Normal color with no rashes, no lesions, and no evidence of cellulitis. MS/ Extremity: Pulses equal, no cyanosis. Neurovascular intact. Full, normal range of motion. Neuro: Awake and alert, GCS 15, oriented to person, place, time, and situation. Cranial nerves II-XII grossly intact. Motor strength 5/5 in all extremities. Sensory grossly intact. Cerebellar exam normal. Normal gait. Vital Signs: 11:56 BP 144 / 94; Pulse 69; Resp 16; Temp 97.8; Pulse Ox 100% on R/A; Weight 75.3 kg; Height dd2 5 ft. 8 in. ; Pain 3/10; 12:46 BP 146 / 98; Pulse 74; Resp 16; Pulse Ox 98% ; go2 13:16 BP 125 / 96; Pulse 74; Resp 16; Pulse Ox 100% ; go2 14:57 BP 125 / 75; Pulse 76; Resp 16; Pulse Ox 100% ; go2 11:56 Body Mass Index 25.24 (75.30 kg, 172.72 cm) dd2 11:56 Pain Scale: Adult dd2 Ling Coma Score: 12:46 Eye Response: spontaneous(4). Motor Response: obeys commands(6). Verbal Response: go2 oriented(5). Total: 15. MDM: 11:34 Medical Screening Exam initiated dr5 16:01 Differential diagnosis: viral Infection, bacterial infection, NSTEMI, Elevated BNP, dr5 PNA, Costochondritis, STEMI. Data reviewed: vital signs, nurses notes, lab test result(s), cardiac enzymes, troponin i, CBC, white blood cell count, hemoglobin, hematocrit, platelets, electrolytes, sodium, potassium, chloride, serum bicarbonate, BUN, creatinine, serum glucose, Pro-BNP, EKG, radiologic studies, plain films. Consideration of Admission/Observation Escalation of care including admission/observation considered. Escalation considered patient found to have elevated troponin. I considered the following discharge prescriptions or medication management in the emergency department I discussed and recommended Over The Counter medications, Medications were administered in the Emergency Department. See MAR. Independent interpretation of the following test(s) in the Emergency Department X-Ray: My interpretation is Independent interpretation of x-ray does not reveal fracture or pneumonia. Historians other than the Patient: Spouse/Significant Other: at bedside. Care significantly affected by the following chronic conditions: Vertigo, depression, anxiety, DVT. Care significantly affected by the following Social Determinants of Health: Poor access to healthcare and/or lack of insurance, Poor access to transportation, Problems related to employment. Counseling: I had a detailed discussion with the patient and/or guardian regarding the historical points, exam findings, and any diagnostic results supporting the discharge/admit diagnosis, the presence of at least one elevated blood pressure reading (>120/80) during this emergency department visit, lab results, radiology results, the need for outpatient follow up, for definitive care, to return to the emergency department if symptoms worsen or persist or if there are any questions or concerns that arise at home. Medication response: Toradol, morphine, Zofran. Response to treatment: There is no appreciated change of the patient's symptoms at this time. Special discussion: Based on the patient's history, exam, and Dx evaluation, there is no indication for emergent intervention or inpatient Tx. It is understood by the patient/guardian that if the Sx's persist or worsen they need to return immediately for re-evaluation. I discussed with the patient/guardian in detail that at this point there is no indication for admission to the hospital. It is understood, however, that if the symptoms persist or worsen the patient needs to return immediately for re-evaluation. Based on the history and exam findings, there is no indication for further emergent testing or inpatient evaluation. I discussed with the patient/guardian the need to see the primary care provider for further evaluation of the symptoms. ED course: Unremarkable labs and chest x-ray. Patient denies symptoms on discharge. Will have patient follow up with primary care doctor. All question answered. Return precautions given.. 03/08 11:58 Order name: Basic Metabolic Panel; Complete Time: 13:24 dr5 03/08 11:58 Order name: CBC with Diff; Complete Time: 13:02 dr5 03/08 11:58 Order name: NT PRO-BNP; Complete Time: 13:24 dr5 03/08 11:58 Order name: Troponin HS; Complete Time: 13:24 dr5 03/08 11:58 Order name: XRAY Chest (1 view); Complete Time: 13:24 dr5 03/08 11:58 Order name: EKG; Complete Time: 11:59 dr5 03/08 11:58 Order name: Cardiac monitoring; Complete Time: 12:39 dr5 03/08 11:58 Order name: EKG - Nurse/Tech; Complete Time: 12:39 dr5 03/08 11:58 Order name: IV Saline Lock; Complete Time: 12:39 dr5 03/08 11:58 Order name: Labs collected and sent; Complete Time: 12:39 dr5 03/08 11:58 Order name: O2 Per Protocol; Complete Time: 12:48 dr5 03/08 11:58 Order name: O2 Sat Monitoring; Complete Time: 12:48 dr5 EC:51 Rate is 62 beats/min. Rhythm is regular. QRS [place] is Normal. NM interval is normal at dr5 164 msec. QRS interval is normal at 76 msec. QT interval is normal at 424 msec. Clinical impression: Normal ECG and No evidence of ischemia. Administered Medications: 14:35 Drug: Ketorolac IVP 15 mg IVP once Route: IVP; Site: left antecubital; go2 14:35 Drug: NS 0.9% IV 500 ml IV at per protocol once; to be given as a bolus over 30 minutes go2 Route: IV; Rate: per protocol; Site: left antecubital; 15:00 Follow up: IV Status: Completed infusion go2 15:00 Follow up: Response: Pain is decreased go2 14:39 Not Given (Patient Refused): morphineor iv 2 mg IVP once over 4 mins go2 14:39 Not Given (Patient Refused): ondansetron 4 mg IVP once; over 2 minutes go2 Disposition: 15:34 I was immediately available on-site in the Emergency Department for consultation in the ms3 care of the patient. Disposition Summary: 03/08/25 14:54 Discharge Ordered Notes: Location: Home dr5 Condition: Stable dr5 Diagnosis - Palpitations dr5 Followup: dr5 - With: Emergency Department - When: As needed - Reason: Worsening of condition Followup: dr5 - With: Private Physician - When: 1 - 2 days - Reason: Recheck today's complaints, Continuance of care, Re-evaluation by your physician Discharge Instructions: - Discharge Summary Sheet dr5 - Palpitations dr5 Forms: - Medication Reconciliation Form dr5 - Patient Portal Instructions dr5 - Leadership Thank You Letter dr5 Signatures: Dispatcher [employer] EDMS Eliu High, DO ms3 MAURO MCQUEEN RN RN dd2 Mahi Ramos RN RN go2 Eder Pat, TAX AGENT-C TAX AGENT-Cdr5
--- NOTE | 2025-03-08 14:54 | ER ---
Nurse's Notes [facility] Name: Madeline Wagner Age: 54 yrs Sex: Female : 1970 Arrival Date: 03/08/2025 Time: 11:28 Bed 17 Private MD: Diagnosis: Palpitations Presentation: 03/08 11:56 Chief complaint: Patient states: BEGAN FEELING "VIBRATIONS" UNDER LEFT BREAST AND dd2 YESTERDAY BEGAN HAVING STIFF NECK, PAIN IN NECK AND JAW, WENT AWAY AND CAME BACK THIS MORNING. Coronavirus screen: At this time, the client does not indicate any symptoms associated with coronavirus-19. Ebola Screen: No symptoms or risks identified at this time. Initial Sepsis Screen: Does the patient meet any 2 criteria? No. Patient's initial sepsis screen is negative. Does the patient have a suspected source of infection? No. Patient's initial sepsis screen is negative. Risk Assessment: Do you want to hurt yourself or someone else? Patient reports no desire to harm self or others. Onset of symptoms was March 03, 2025. 11:56 Method Of Arrival: Ambulatory dd2 11:56 Acuity: KEISHA 3 dd2 Triage Assessment: 11:59 General: Appears in no apparent distress. uncomfortable, Behavior is calm, cooperative, dd2 appropriate for age. Pain: Complains of pain in left submandibular area, left sternocleidomastoid and right posterior aspect of neck. 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 - Infectious Disease History:: Denies. - Social history:: Smoking status: Patient denies any tobacco usage or history of. Screenin:45 [facility] ED Fall Risk Assessment (Adult) History of falling in the last 3 months, go2 including since admission No falls in past 3 months (0 pts) Confusion or Disorientation No (0 pts) Intoxicated or Sedated No (0 pts) Impaired Gait No (0 pts) Mobility Assist Device Used No (0 pt) Altered Elimination No (0 pt) Score/Fall Risk Level 0 - 2 = Low Risk. Abuse screen: Denies threats or abuse. Denies injuries from another. Nutritional screening: No deficits noted. Tuberculosis screening: No symptoms or risk factors identified. Assessment: 12:44 Reassessment: Patient appears in no apparent distress at this time. No changes from go2 previously documented assessment. Patient is alert, oriented x 3, equal unlabored respirations, skin warm/dry/pink. General: Appears in no apparent distress. comfortable, well groomed, Behavior is calm, cooperative, appropriate for age. Pain: Complains of pain in scalp Quality of pain is described as aching, Pain began 2-3 days ago. Neuro: No deficits noted. Cardiovascular: No deficits noted. Denies chest pain, lightheadedness, nausea, palpitations, shortness of breath, vomiting, Rhythm is sinus rhythm. Respiratory: No deficits noted. GI: No deficits noted. No signs and/or symptoms were reported involving the gastrointestinal system. : No deficits noted. No signs and/or symptoms were reported regarding the genitourinary system. EENT: No deficits noted. No signs and/or symptoms were reported regarding the EENT system. Derm: No deficits noted. No signs and/or symptoms reported regarding the dermatologic system. Musculoskeletal: No deficits noted. No signs and/or symptoms reported regarding the musculoskeletal system. Vital Signs: 11:56 BP 144 / 94; Pulse 69; Resp 16; Temp 97.8; Pulse Ox 100% on R/A; Weight 75.3 kg; Height dd2 5 ft. 8 in. ; Pain 3/10; 12:46 BP 146 / 98; Pulse 74; Resp 16; Pulse Ox 98% ; go2 13:16 BP 125 / 96; Pulse 74; Resp 16; Pulse Ox 100% ; go2 14:57 BP 125 / 75; Pulse 76; Resp 16; Pulse Ox 100% ; go2 11:56 Body Mass Index 25.24 (75.30 kg, 172.72 cm) dd2 11:56 Pain Scale: Adult dd2 Vitals: 12:46 Cardiac Rhythm Assessment Regular Sinus rhythm. go2 Ling Coma Score: 12:46 Eye Response: spontaneous(4). Motor Response: obeys commands(6). Verbal Response: go2 oriented(5). Total: 15. ED Course: 11:34 Patient arrived in ED. cj3 11:34 Eder Pat FNP-C is [facility]. dr5 11:34 Eliu High DO is Attending Physician. dr5 11:59 Triage completed. dd2 11:59 Arm band placed on right wrist. dd2 12:07 Mahi Ramos, RN is Primary Nurse. go2 12:45 No provider procedures requiring assistance completed. Inserted saline lock: 20 gauge go2 in left antecubital area, using aseptic technique. 12:47 Patient has correct armband on for positive identification. Bed in low position. Call go2 light in reach. Side rails up X 1. Client placed on continuous cardiac and pulse oximetry monitoring. NIBP monitoring applied. commercial pest control technician on. Pulse ox on. NIBP on. Door closed. Noise minimized. Warm blanket given. 12:54 EKG done, by field artillery targeting technician. reviewed by Eder HERNÁNDEZ. ts3 13:04 XRAY Chest (1 view) In Process Unspecified. EDMS 14:58 Provided Education on: . go2 14:59 IV discontinued, intact, bleeding controlled, No redness/swelling at site. go2 Administered Medications: 14:35 Drug: Ketorolac IVP 15 mg IVP once Route: IVP; Site: left antecubital; go2 14:35 Drug: NS 0.9% IV 500 ml IV at per protocol once; to be given as a bolus over 30 minutes go2 Route: IV; Rate: per protocol; Site: left antecubital; 15:00 Follow up: IV Status: Completed infusion go2 15:00 Follow up: Response: Pain is decreased go2 14:39 Not Given (Patient Refused): morphineor iv 2 mg IVP once over 4 mins go2 14:39 Not Given (Patient Refused): ondansetron 4 mg IVP once; over 2 minutes go2 Medication: 12:47 VIS not applicable for this client. go2 Outcome: 14:54 Discharge ordered by . dr5 14:58 Discharged to home ambulatory, go2 14:58 Condition: good 14:58 Discharge instructions given to patient, Instructed on discharge instructions, follow up and referral plans. Demonstrated understanding of instructions, follow-up care, 15:05 Patient left the ED. go2 Signatures: Dispatcher [employer] MAURO ARMSTRONG RN RN dd2 Mahi Ramos RN RN go2 Eder Pat, RN CASE MGR-C RN CASE MGR-Cdr5 Blanca Reynolds cj3 Asia Klein ts3 Corrections: (The following items were deleted from the chart) 14:39 14:35 Ondansetron IVP 4 mg IVP in left antecubital go2 go2 14:39 14:35 morphine IVP or IV 2 mg IVP in left antecubital over 4 mins go2 go2
[2025-03-08 15:28] VITALS: TEMP 97.8
[2025-03-08 15:38] VITALS: BP 125/75; O2SAT 100
== END 2025-03-08 15:05 | disposition home or self-care (01) ==
LOC: ER 11:28
DX: R00.2 Palpitations (principal); M54.2 Cervicalgia; R20.0 Anesthesia of skin; R68.84 Jaw pain; F41.9 Anxiety disorder, unspecified; F32.A Depression, unspecified; G51.0 Bell's palsy; I82.409 Acute embolism and thrombosis of unspecified deep veins of unspecified lower extremity
CPT/HCPCS: 93005; 85025; 80048; 36415; 84484; 83880; 71045; 96374; 99285; J7040; J1885; J2270; J2405